=== PATIENT | female | born 1990 | race Caucasian/White ===

== ENCOUNTER → 2018-06-02 | Outpatient (CLI) | payer SELFPAY ==
--- NOTE | 2018-06-02 16:12 | RADIOLOGY REPORT (SQ) ---
EXAM DESCRIPTION: U/S [id number] TRNABD 1GES W/ODOP COMPLETED DATE/TIME: 06/02/2018 3:46 pm REASON FOR STUDY: ENCOUNTER FOR SUPRVSN OF NORMAL , FIRST TRIMESTER Z34.81 ENCOUNTER FOR S UPRVSN OF NORMAL , FIRST TRIM COMPARISON: None. TECHNIQUE: Transabdominal static and realtime grayscale images acquired of the pelvis. Additional se lected spectral and color Doppler images recorded. All images stored on PACs. [facility]. CLINICAL DATES: LMP 03/26/2018. 9 weeks 5 days. LIMITATIONS: None. FINDINGS: FETUS: Living intrauterine . ULTRASOUND EGA: 9 weeks 6 days ULTRASOUND ASHLEE: 12/30/2018 CRL: 2.95 cm FHR: 182 beats per minute. SUBCHORIONIC BLEED: Yes SIZE OF BLEED: Small UTERUS: No masses. No anomalies. CERVICAL LENGTH: 4 cm. Closed. RIGHT ADNEXA: Normal ovary with normal vascular flow. 4.2 x 3 x 2.8 cm. No adnexal free fluid. No adnexal masses. LEFT ADNEXA: Ovary not seen. No adnexal free fluid. No adnexal masses. FREE FLUID: None. OTHER: No other significant finding. IMPRESSION: LIVING INTRAUTERINE . EGA 9 weeks 6 days. Trimester of : First - 0 to 13 weeks. TECHNICAL DOCUMENTATION: JOB ID: [id number] [employer]- All Rights Reserved rev Reading location - IP/workstation name: [email or web address]
== END ==
LOC: RAD 14:46
PROVIDERS: ATTEND Nurse Practitioner
DX: Z34.81 Encounter for supervision of other normal pregnancy, first trimester (principal)
CPT/HCPCS: 76801

== ENCOUNTER 2019-01-02 07:43 | Inpatient (IN) | payer MEDICAID ==
[2019-01-02 08:40] LABS: APPEARANCE,URINE CLOUDY; BILIRUBIN,URINE NEGATIVE (NEGATIVE); COLOR,URINE YELLOW; GLUCOSE, URINE NEGATIVE (NEGATIVE); KETONES,URINE NEGATIVE (NEGATIVE); LEUKOCYTE ESTERASE,URINE MODERATE (NEGATIVE); NITRITE,URINE NEGATIVE (NEGATIVE); PROTEIN,URINE 100 mg/dL (NEGATIVE); URINE SPECIFIC GRAVITY 1.018; UROBILINOGEN,URINE NEGATIVE mg/dL (<2.0)
[2019-01-02] MEDS ORDERED: RINGERS SOLUTION,LACTATED 1,000 ML IV ONE (08:48)
[2019-01-02 08:56] LABS: URINE AMPHETAMINES SCREEN NEGATIVE; URINE BARBITURATES SCREEN NEGATIVE; URINE BENZODIAZEPINES SCREEN NEGATIVE; URINE COCAINE SCREEN NEGATIVE; URINE MARIJUANA (THC) SCREEN NEGATIVE; URINE METHADONE SCREEN NEGATIVE; URINE PHENCYCLIDINE SCREEN NEGATIVE
[2019-01-02] MEDS: RINGERS SOLUTION,LACTATED 1,000 ML IV PRN ×2 (09:12→13:29)
[2019-01-02 09:40] LABS: ABSOLUTE EOSINOPHILS # (AUTO) 0.1 10^3/uL (0.0-0.6); ABSOLUTE LYMPHOCYTES (AUTO) 1.5 10^3/uL (0.5-4.7); ABSOLUTE MONOCYTES (AUTO) 0.5 10^3/uL (0.1-1.4); ABSOLUTE NEUT (AUTO) 6.8 10^3/uL (1.7-8.2); BASOPHILS % (AUTO) 0.2 % (0-2); EOSINOPHILS % (AUTO) 1.5 % (0-6); HEMATOCRIT 36.4 % (36.0-47.0); HEMOGLOBIN 12.3 g/dL (12.0-15.5); LYMPHOCYTES % (AUTO) 16.3 % (13-45); MEAN CORPUSCULAR HEMOGLOBIN 27.7 pg (27.0-33.4); MEAN CORPUSCULAR HGB CONC 33.8 g/dL (32.0-36.0); MEAN CORPUSCULAR VOLUME 82 fl (80-97); MONOCYTES % (AUTO) 5.9 % (3-13); PLATELET COUNT 220 10^3/uL (150-450); RED BLOOD COUNT 4.45 10^6/uL (3.72-5.28); RED CELL DISTRIBUTION WIDTH 15.7 % (11.5-14.0); SEGMENTED NEUTROPHILS % (AUTO) 76.1 % (42-78); TOTAL CELLS COUNTED % (AUTO) 100 %; WHITE BLOOD COUNT 8.9 10^3/uL (4.0-10.5)
[2019-01-02] MEDS: VANCOMYCIN HCL 1,000 MG in DEXTROSE 5%-WATER 250 ML IV SCH ×2 (10:15→15:45)
[2019-01-02] MEDS ORDERED: NALBUPHINE HCL INJ 10 MG/1 ML AMPULE INJ ONE (10:48)
[2019-01-02] MEDS ORDERED: NALBUPHINE HCL INJ 10 MG/1 ML AMPULE ONE (10:48)
[2019-01-02] MEDS ORDERED: OXYTOCIN/NORMAL SALINE 20 UNIT/1,000 ML RTUINJ IV PRN ×2 (13:04→14:41)
[2019-01-02] MEDS ORDERED: OXYTOCIN 10 UNIT/ML VIAL ONE (13:06)
[2019-01-02] MEDS ORDERED: MISOPROSTOL 0.2 MG TABLET ONE (13:06)
[2019-01-02] MEDS ORDERED: OXYTOCIN/NORMAL SALINE 20 UNIT/1,000 ML RTUINJ ONE (13:07)
[2019-01-02] MEDS ORDERED: LIDOCAINE 1% INJ-PF (10 MG/ML) 30 ML SDV ONE (13:07)
--- NOTE | 2019-01-02 14:36 | Admission Physical ---
Datetime Report Generated by CPN: 01/02/2019 14:36 CURRENT ADMISSION Chief Complaint: Suspected Ruptured Membranes Chief Complaint Other: Cervix 2cm on admission, advanced to 6cm after Pitocin augmentation with no cervical change after 4hrs Indication for Induction: Not Applicable Admit Impression : Postterm, Intrauterine Admit Plan: Admit to Unit; Initiate Labor Protocol ALLERGIES Medication Allergies: No Medication Allergies: Penicillins (01/02/2019) Latex: No Latex Allergies OBSTETRICAL HISTORY EDC: 12/31/2018 00:00 : 3 Para: 2 Gestational Diabetes: No Rh Sensitization: No Incompetent Cervix: No JADE: No Infertility: No ART Treatment: No Uterine Anomaly: No IUGR: No Hx Previous C/S: No Macrosomia: No Hx Loss/Stillborn: No PIH: No Hx : No Placenta Previa/Abruption: No Depression/PP Depression: No PTL/PROM: No Post Hemorrhage: No Current Procedures: Ultrasound; NST Obstetrical History Comments: G1-41.5 weeks induction, NVD G2-41.5 weeks induction, NVD G3-Current SEE RECORDS Alcohol: No Marijuana : No Cocaine: No Other Illicit Drugs: No Cigarettes: Never Smoker. [id number] MEDICAL HISTORY Diabetes: No Blood Transfusion: No Pulmonary Disease (Asthma, TB): No Breast Disease: No Hypertension: No Senior Coldfusion Developer Surgery: No Heart Disease: No Hosp/Surgery: Yes Autoimmune Disorder: No Anesthetic Complications: No Kidney Disease: No Abnormal Pap Smear: No Neuro/Epilepsy: No Psychiatric Disorders: No Other Medical Diseases: No Hepatitis/Liver Disease: No Significant Family History: No Varicosities/Phlebitis: No Trauma/Violence : No Thyroid Dysfunction: No Medical History Comments: Apendix , tonsilectomy, asthma INFECTIOUS HISTORY Gonorrhea: No Genital Herpes: No Chlamydia: No Tuberculosis: No Syphilis: No Hepatitis: No HIV/AIDS Exposure: No Rash or Viral Illness: No HPV: No PHYSICAL EXAM HEENT: Normal Heart: Normal Lungs: Normal Abdomen: Normal Genitourinary Exam: Normal Extremities: Normal Pelvic Type: Adequate Vital Signs: Reviewed; Within Normal Limits VAGINAL EXAM Dilatation: 8 Effacement: 90 Station: -1 Contraction Comments: q 2 min MEMBRANES Membranes: Ruptured Amniotic Fluid Color: Clear FETUS A EGA: 40.2 Monitoring: External US FHR- Baseline: 135 Accelerations: 15X15 Decelerations: None FHR Category: Category I Presentation: Vertex PLANS FOR LABOR AND DELIVERY Labor and Delivery: None Pain Management: Natural Feeding Preference: Breast Benefit of Breast Feed Discussed: Yes Circumcision: N/A INFORMED CONSENT Signature: with User ID: [email or web address]
[2019-01-02] MEDS ORDERED: DIPH/PERTUSS(ACELL)/TETANUS VAC/PF 0.5 ML SYR (>=10YO) IM PRN (14:41)
[2019-01-02] MEDS ORDERED: ZOLPIDEM TARTRATE 5 MG TABLET PO PRN (14:41)
[2019-01-02] MEDS ORDERED: DIBUCAINE 1% OINTMENT 56 GM TP PRN (14:41)
[2019-01-02] MEDS ORDERED: MEASLES,MUMPS&RUBELLA VACC/PF 0.5 ML VIAL SUBCUT PRN (14:41)
[2019-01-02] MEDS ORDERED: ACETAMINOPHEN 325 MG TABLET PO PRN (14:44)
[2019-01-02] MEDS ORDERED: ONDANSETRON HCL 8 MG TABLET PO PRN (14:44)
[2019-01-02] MEDS ORDERED: DIPHENHYDRAMINE HCL 25 MG CAPSULE PO PRN (14:45)
[2019-01-02] MEDS ORDERED: IBUPROFEN 800 MG TABLET ONE (15:48)
[2019-01-02] MEDS: IBUPROFEN 800 MG TABLET PO SCH ×2 (15:51→21:24)
[2019-01-02] MEDS: FERROUS SULFATE 325 MG TABLET PO SCH (17:42)
[2019-01-02] MEDS: DOCUSATE SODIUM 100 MG CAPSULE PO SCH (17:42)
[2019-01-02] MEDS: BENZOCAINE/MENTHOL AEROSOL SPRAY 56 ML TOP PRN (17:46)
[2019-01-02] MEDS: HYDROCODONE/ACETAMINOPHEN 5-325 MG TABLET PO PRN ×2 (17:46→22:55)
[2019-01-03] MEDS: IBUPROFEN 800 MG TABLET PO SCH ×3 (05:07→21:44)
[2019-01-03] MEDS: HYDROCODONE/ACETAMINOPHEN 5-325 MG TABLET PO PRN ×3 (05:07→18:30)
[2019-01-03 07:32] LABS: HEMATOCRIT 35.6 % (36.0-47.0); HEMOGLOBIN 11.8 g/dL (12.0-15.5); MEAN CORPUSCULAR HEMOGLOBIN 27.1 pg (27.0-33.4); MEAN CORPUSCULAR HGB CONC 33.1 g/dL (32.0-36.0); MEAN CORPUSCULAR VOLUME 82 fl (80-97); PLATELET COUNT 221 10^3/uL (150-450); RED BLOOD COUNT 4.35 10^6/uL (3.72-5.28)
[2019-01-03] MEDS: DOCUSATE SODIUM 100 MG CAPSULE PO SCH ×2 (10:25→18:29)
[2019-01-03] MEDS: SENNOSIDES/DOCUSATE 8.6-50 MG 1 EACH TABLET PO SCH (10:25)
[2019-01-03] MEDS: FAMOTIDINE 20 MG TABLET PO PRN (10:25)
[2019-01-03] MEDS: FERROUS SULFATE 325 MG TABLET PO SCH ×2 (10:25→18:29)
[2019-01-03] MEDS: PRENATAL VITAMIN W DHA CAPSULE PO SCH (10:25)
--- NOTE | 2019-01-03 10:50 | PDOC PROGRESS REPORT ---
Subjective-OB Progress Note for:: 01/03/19 - PP Day #1, doing well, no complaints. O+, Rubella Immune breast and bottlefeeding Physical Exam (OB) Vital Signs: Temp Pulse Resp BP Pulse Ox 98.8 F 82 18 150/79 H 95 01/02/19 20:08 01/02/19 20:08 01/02/19 20:08 01/02/19 20:08 01/02/19 20:08 Intake & Output 01/02/19 01/03/19 01/04/19 06:59 06:59 06:59 Intake Total 535 Balance 535 Weight 132.024 kg - General General Appearance: Appears well, Alert In distress: None - PIH/Pre-Eclampsia Clonus: Negative Headache: Absent Epigastric Pain: No Visual Changes: No - Lochia Lochia Amount: Scant < 10 ml Lochia Color: Rubra/Red - Abdomen Description: Soft Hernia Present: No Fundal Description: Firm, Midline Fundal Height: u/u - u/2 - Respiratory Respiratory Status: No respiratory distress - Abdominal Distension: No distension - Genitourinary Genitourinary Note: voiding - Extremities Upper extremity: Normal inspection Lower extremities: Edema - 1+ - Neurological Cognition: Normal Orientation: AAOx4 - Psychological Associated symptoms: Normal affect, Normal mood - Skin Skin Temperature: Warm Skin Moisture: Dry Objective-Diagnostic Laboratory: 01/03/19 07:20 01/03/19 07:20 WBC 10.0 RBC 4.35 Hgb 11.8 L Hct 35.6 L MCV 82 MCH 27.1 MCHC 33.1 RDW 16.0 H Plt Count 221 Assessment and Plan(PN) - Assessment and Plan (1) (normal spontaneous vaginal delivery) Is this a current diagnosis for this admission?: Yes (2) Normal course Is this a current diagnosis for this admission?: Yes - Time Spent with Patient Time with patient: Less than 15 minutes Medications reviewed and adjusted accordingly: Yes - Disposition Anticipated Discharge: Home Within: within 24 hours
[2019-01-04] MEDS: HYDROCODONE/ACETAMINOPHEN 5-325 MG TABLET PO PRN (04:11)
[2019-01-04] MEDS: BENZOCAINE/MENTHOL AEROSOL SPRAY 56 ML TOP PRN (04:11)
[2019-01-04] MEDS: IBUPROFEN 800 MG TABLET PO SCH ×2 (06:46→13:38)
[2019-01-04 08:10] VITALS: BP 149/89
--- NOTE | 2019-01-04 08:18 | Delivery Summary ---
Del Sum A-C Datetime Report Generated by CPN: 01/04/2019 08:17 DELIVERY PERSONNEL DELIVERY PERSONNEL: [id number] Delivery Doctor:: Ivis Cross MD Labor and Delivery Nurse:: Jo Soto RN Labor and Delivery Nurse:: Alyse Ro RN Associate Director:: SAMSON Carreon Live Ammunition Inspector/MENTAL HEALTH TECH: Sylwia Barriga, REGIONAL PLANNER MATERNAL INFORMATION Delivery Anesthesia: None Medications After Delivery: Pitocin Bolus-Please Comment; Pitocin Drip 20 Units/1000ml NSS Estimated Blood Loss (ml): 200 Maternal Complications: None Provider Comments: Pt 8cm and feeling strong urge to push with voluntary pushing. Remaining cervix on pt's right reduced carefully. Once complete, pt began pushing. Head delivered OA. Anterior shoulder delivered. Body cord reduced. Posterior shoulder delivered followed by rest of body. Baby placed on mom's abdomen. After _1min, cord clamped x 2 and cut by FOB. Placenta delivered intact with 3VC. No lacs. LABOR SUMMARY EDC: 12/31/2018 00:00 No. Babies in Womb: 1 Attempted: No Labor Anesthesia: None LABOR INFORMATION Reason for Induction: Not Applicable Onset of Labor: 01/02/2019 07:00 Complete Dilatation: 01/02/2019 14:10 Oxytocin: Augmentation Group B Beta Strep: Positive Antibiotics # of Doses: 1 Antibiotics Time of Last Dose: 1015 Name of Antibiotic Given: Vancomycin Steroids Given: None Reason Steroids Not Administered: Not Applicable MEMBRANES Membranes Rupture Method: Spontaneous Rupture of Membranes: 01/02/2019 07:00 Length of Rupture (hr): 7.25 Amniotic Fluid Color: Clear Amniotic Fluid Amount: Small STAGES OF LABOR Stage 1 hr: 7 Stage 1 min: 10 Stage 2 hr: 0 Stage 2 min: 5 Stage 3 hr: 0 Stage 3 min: 5 Total Time in Labor hr: 7 Total Time in Labor min: 20 VAGINAL DELIVERY Episiotomy: None Laceration #1: None Laceration Extension #1: N/A Laceration Repair: Not Applicable Sponge Count Correct: N/A Sharps Count Correct: Yes CSECTION DELIVERY Primary Indication: N/A Secondary Indication: N/A CSection Incidence: N/A Labor: N/A Elective: N/A CSection Incision: N/A BABY A INFORMATION Delivery Date/Time: 01/02/2019 14:15 Method of Delivery: Vaginal Born in Route : No : N/A Forceps: N/A Vacuum Extraction: N/A Shoulder Dystocia : No PRESENTATION/POSITION BABY A Presentation: Cephalic Cephalic Presentation: Vertex Vertex Position: Left Occipital Anterior Breech Presentation: N/A PLACENTA INFORMATION BABY A Placenta Delivery Time : 01/02/2019 14:20 Placenta Method of Delivery: Spontaneous Placenta Status: Delivered SCORES BABY A Heart Rate 1 min: >100 bpm Resp Effort 1 min: Good Cry Reflex Irritability 1 min: Cough or Sneeze or Pulls Away Muscle Tone 1 min: Some Flexion of Extremities Color 1 min: Body [place], Extremities Blue Resuscitation Effort 1 min: Tactile Stimulation SCORE 1 MIN: 8 Heart Rate 5 min: >100 bpm Resp Effort 5 min: Good Cry Reflex Irritability 5 min: Cough or Sneeze or Pulls Away Muscle Tone 5 min: Active Motion Color 5 min: Body [place], Extremities Blue Resuscitation Effort 5 min: Tactile Stimulation SCORE 5 MIN: 9 INFORMATION BABY A Gestational Age at Delivery: 40.2 Gestational Status: Full Term- 39- 40.6 Weeks Infant Outcome : Liveborn Infant Condition : Stable Sex: Female IDENTIFICATION BABY A Verification Date/Time: 01/02/2019 14:39 ID Band Number: [id number] Mother's Name Verified: Yes Infant RN Verifying : Elizabeth Mariee RN WEIGHT/LENGTH BABY A Infant Birthweight (gm): 3717 Infant Weight (lb): 8 Infant Weight (oz): 3 Length (in): 21.00 Length (cm): 53.34 CORD INFORMATION BABY A No. Cord Vessels: 3 Nuchal Cord : N/A Cord Blood Taken: Yes-For Eval (Mom's Blood Type - or O+) ASSESSMENT BABY A Infant Complications: None Physical Findings at Delivery: Molding of the Head Respirations: Appears Normal Skin to Skin: No Risk And Insurance Manager/ALS Called : No Infant Care By: D Anai RN Transferred To: Remains with Mother SIGNATURES Signature: with User ID: [email or web address] : I was personally available for consultation and serving as supervising physician for the MLP.
--- NOTE | 2019-01-04 08:55 | PDOC DISCHARGE SUMMARY ---
Final Diagnosis Discharge Date: 01/04/19 - Final Diagnosis (1) (normal spontaneous vaginal delivery) Is this a current diagnosis for this admission?: Yes (2) Normal course Is this a current diagnosis for this admission?: Yes Discharge Data - Discharge Medication Prescriptions: Ibuprofen [Motrin 800 mg Tablet] 800 mg PO Q8HP PRN #30 tablet PRN Reason: Abdominal Cramping Home Medications: No122/Iron/Folic Acid [ Multi Tablet] 1 each PO DAILY 01/02/19 Ibuprofen [Motrin 800 mg Tablet] 800 mg PO Q8HP PRN #30 tablet 01/04/19 Reason(s) for Admission: PROM Procedures: NST, Ultrasound Intrapartum Procedure(s): Spontaneous Vaginal Delivery - Diagnosis Test Laboratory: Temp Pulse Resp BP Pulse Ox 98.5 F 87 18 149/89 H 99 01/04/19 07:49 01/04/19 07:49 01/04/19 07:49 01/04/19 07:49 01/04/19 07:49 01/02/19 01/02/19 01/03/19 07:51 09:25 07:20 RBC 4.45 4.35 Hgb 12.3 11.8 L Hct 36.4 35.6 L Urine Opiates Screen NEGATIVE - Discharge information/Instructions Discharge Activity: Activity As Tolerated, Balance Activity w/Rest, No Lifting Over 10 Pounds, Pelvic Rest, No tub bath, Walk Frequently Discharge Diet: As Tolerated, Regular Disposition: HOME, SELF-CARE Follow up with: [facility] in: 3, Days - blood pressure check
[2019-01-04] MEDS: PRENATAL VITAMIN W DHA CAPSULE PO SCH (09:35)
[2019-01-04] MEDS: SENNOSIDES/DOCUSATE 8.6-50 MG 1 EACH TABLET PO SCH (09:35)
[2019-01-04] MEDS: FERROUS SULFATE 325 MG TABLET PO SCH (09:35)
[2019-01-04] MEDS: FAMOTIDINE 20 MG TABLET PO PRN (09:35)
[2019-01-04] MEDS: DOCUSATE SODIUM 100 MG CAPSULE PO SCH (09:35)
== END 2019-01-04 17:00 | disposition home or self-care (01) | DRG 807 ==
LOC: LC 07:43 → LR 08:57 → 2S 16:45
PROVIDERS: ADMIT Obstetrics & Gynecology; ATTEND Obstetrics & Gynecology
PROC: 10E0XZZ Delivery of Products of Conception, External Approach (ICD-10-PCS; principal; 2019-01-02)
DX: O48.0 Post-term pregnancy (principal); Z37.0 Single live birth; O99.824 Streptococcus B carrier state complicating childbirth; Z88.0 Allergy status to penicillin; Z3A.40 40 weeks gestation of pregnancy
CPT/HCPCS: 36415; 80307; 81005; 84112; 85025; 85027; 86592; 86850; 86900; 86901; J2300; J2590; J3370; J3490; J7060

== ENCOUNTER 2020-08-17 13:01 | Outpatient (CLI) | payer MEDICAID ==
--- NOTE | 2020-08-17 13:48 | Non Stress Test Report ---
Non Stress Test Datetime Report Generated by CPN: 08/17/2020 13:48 DEMOGRAPHIC EGA NST: 39.6 MONITORING Time on Monitor: 08/17/2020 13:20 Time off Monitor: 08/17/2020 13:40 NST Duration: 20 NST INTERVENTIONS NST Interventions: None Physician Notified NST: Dr. Coreas BABY A: [id number] BABY A Movement : Present Contraction Frequency : 4-6 FHR Baseline : 135 Accelerations : 15X15 Decelerations : None Variability : Moderate 6-25bpm NST Review: Meets Criteria for Reactive NST NST Review and Verified By : Jeanine Aj RN NST Results: Reactive NST REPORT Report Trigger: Send Report
--- OUTSIDE RECORDS SUMMARY | 2020-08-18 15:29 | XMS REPORT ---
:1990 [facility] Address [address] [address] Care Team Providers Name Role Phone Unavailable Unavailable Unavailable Allergies, Adverse Reactions, Alerts This patient has no known allergies or adverse reactions. Medications This patient has no known medications. Problems This patient has no known problems. Procedures This patient has no known procedures. Results This patient has no known results. Social History This patient has no known social history. Vital Signs This patient has no known vital signs.
== END 2020-08-17 13:55 | disposition home or self-care (01) ==
LOC: LC 13:01
PROVIDERS: ATTEND Obstetrics & Gynecology Gynecology
PROC: 4A1HXCZ Monitoring of Products of Conception, Cardiac Rate, External Approach (ICD-10-PCS; principal; 2020-08-17)
DX: O16.3 Unspecified maternal hypertension, third trimester (principal); Z3A.39 39 weeks gestation of pregnancy
CPT/HCPCS: 59025; 94760

== ENCOUNTER 2020-08-17 18:59 | Inpatient (IN) | payer MEDICAID ==
--- NOTE | 2020-08-17 19:42 | Admission Physical ---
Datetime Report Generated by CPN: 08/17/2020 19:42 CURRENT ADMISSION Chief Complaint: Other Indication for Induction: Gestational HTN Admit Impression : Term, Intrauterine Admit Plan: Initiate Labor Protocol ALLERGIES Medication Allergies: Yes Medication Allergies: Penicillins (08/17/2020); amoxicillin (08/17/2020) Latex: No Latex Allergies Food Allergies: NKFA Environmental Allergies: NKOA OBSTETRICAL HISTORY EDC: 08/18/2020 00:00 : 4 Para: 3 Term: 3 : 0 SAB: 0 IAB: 0 Ectopic: 0 Livin Cesareans: 0 VBACs: 0 Multiple Births: 0 Gestational Diabetes: No Rh Sensitization: No Incompetent Cervix: No JADE: No Infertility: No ART Treatment: No Uterine Anomaly: No IUGR: No Hx Previous C/S: No Macrosomia: No Hx Loss/Stillborn: No PIH: No Hx : No Placenta Previa/Abruption: No Depression/PP Depression: No PTL/PROM: No Post Hemorrhage: No Current Procedures: Ultrasound; NST; BPP Obstetrical History Comments: G1- Aug 2016 41 weeks induced epidural female G2- February 2013 41 weeks induced epidural female G3- December 2018 40.2 weeks female SEE RECORDS Alcohol: No Marijuana : No Cocaine: No Other Illicit Drugs: No Cigarettes: Former Smoker. [id number] MEDICAL HISTORY Diabetes: No Blood Transfusion: No Pulmonary Disease (Asthma, TB): Yes Breast Disease: No Hypertension: No Delivery Man Surgery: No Heart Disease: No Hosp/Surgery: No Autoimmune Disorder: No Anesthetic Complications: No Kidney Disease: No Abnormal Pap Smear: No Neuro/Epilepsy: No Psychiatric Disorders: No Other Medical Diseases: No Hepatitis/Liver Disease: No Significant Family History: No Varicosities/Phlebitis: No Trauma/Violence : No Thyroid Dysfunction: Yes Medical History Comments: CHTN, asthma as a child, thyroid issues with current and last but no meds. appendectomy, T_A, stent placed in kidney to remove a stone INFECTIOUS HISTORY Gonorrhea: No Genital Herpes: No Chlamydia: No Tuberculosis: No Syphilis: No Hepatitis: No HIV/AIDS Exposure: No Rash or Viral Illness: No HPV: No PHYSICAL EXAM General: Normal HEENT: Normal Neurologic: Normal Thyroid: Normal Heart: Normal Lungs: Normal Breast: Deferred Back: Normal Abdomen: Normal Genitourinary Exam: Normal Extremities: Normal DTRs: Normal Pelvic Type: Adequate FETUS A EGA: 39.6 PLANS FOR LABOR AND DELIVERY Labor and Delivery: None Pain Management: Natural Feeding Preference: Breast Benefit of Breast Feed Discussed: Yes Circumcision: Yes INFORMED CONSENT Signature: with User ID: [email or web address]
[2020-08-17] MEDS ORDERED: RINGERS SOLUTION,LACTATED 300 ML IV ONE (20:29)
[2020-08-17] MEDS ORDERED: DINOPROSTONE 10 MG VAGINAL INSERT.SR PV ONE (20:29)
[2020-08-17] MEDS ORDERED: RINGERS SOLUTION,LACTATED 1,000 ML IV PRN (20:29)
[2020-08-17] MEDS ORDERED: ACETAMINOPHEN 325 MG TABLET PO PRN (20:29)
[2020-08-17] MEDS ORDERED: ZOLPIDEM TARTRATE 5 MG TABLET PO PRN (20:29)
[2020-08-17] MEDS ORDERED: MAG HYDROX/AL HYDROX/SIMETH SUSP 30 ML UDCUP PO PRN (20:29)
[2020-08-17 21:09] LABS: APPEARANCE,URINE SLIGHTLY-CLOUDY; BILIRUBIN,URINE NEGATIVE (NEGATIVE); COLOR,URINE YELLOW; GLUCOSE, URINE NEGATIVE (NEGATIVE); KETONES,URINE NEGATIVE (NEGATIVE); LEUKOCYTE ESTERASE,URINE TRACE (NEGATIVE); NITRITE,URINE NEGATIVE (NEGATIVE); PROTEIN,URINE 30 mg/dL (NEGATIVE); URINE SPECIFIC GRAVITY 1.026; UROBILINOGEN,URINE NEGATIVE mg/dL (<2.0)
[2020-08-17] MEDS ORDERED: DINOPROSTONE 10 MG VAGINAL INSERT.SR ONE (21:09)
[2020-08-17 21:27] LABS: URINE AMPHETAMINES SCREEN NEGATIVE; URINE BARBITURATES SCREEN NEGATIVE; URINE BENZODIAZEPINES SCREEN NEGATIVE; URINE COCAINE SCREEN NEGATIVE; URINE MARIJUANA (THC) SCREEN NEGATIVE; URINE METHADONE SCREEN NEGATIVE; URINE PHENCYCLIDINE SCREEN NEGATIVE
[2020-08-17 21:28] LABS: ABSOLUTE EOSINOPHILS # (AUTO) 0.1 10^3/uL (0.0-0.6); ABSOLUTE LYMPHOCYTES (AUTO) 1.7 10^3/uL (0.5-4.7); ABSOLUTE MONOCYTES (AUTO) 0.6 10^3/uL (0.1-1.4); ABSOLUTE NEUT (AUTO) 5.8 10^3/uL (1.7-8.2); BASOPHILS % (AUTO) 0.2 % (0-2); EOSINOPHILS % (AUTO) 1.3 % (0-6); HEMOGLOBIN 11.4 g/dL (12.0-15.5); LYMPHOCYTES % (AUTO) 21.2 % (13-45); MEAN CORPUSCULAR HGB CONC 32.6 g/dL (32.0-36.0); MEAN CORPUSCULAR VOLUME 83 fl (80-97); MONOCYTES % (AUTO) 6.8 % (3-13); PLATELET COUNT 212 10^3/uL (150-450); RED BLOOD COUNT 4.24 10^6/uL (3.72-5.28); RED CELL DISTRIBUTION WIDTH 15.9 % (11.5-14.0); SEGMENTED NEUTROPHILS % (AUTO) 70.5 % (42-78); TOTAL CELLS COUNTED % (AUTO) 100 %; WHITE BLOOD COUNT 8.2 10^3/uL (4.0-10.5)
[2020-08-18] MEDS ORDERED: CLINDAMYCIN 900 MG/D5W RTU 900 MG/50 ML RTUPB IV ONE ×2 (07:05→17:10)
--- NOTE | 2020-08-18 08:22 | L&D Progress Notes ---
PROGRESS NOTES Datetime Report Generated by CPN: 08/18/2020 08:22 PROGRESS NOTE Comment: Cat 1 strip, irregular uc's LAST VAGINAL EXAM-NURSING Nursing Exam Dilitation: 2.0 Nursing Exam Effacement: thick Nursing Exam Station: -3 Nursing Exam Contractions: patient breathing through contractions, no pain medication wanted at this time. Patient educated on epidural and IV pain medication if needed. Patient stated understanding. SIGNATURE SIGNATURE: [id number];[id number];[id number] Assignment: Shayla Lopez MD Signature: with User ID: [email or web address] : with User ID: [email or web address]
--- NOTE | 2020-08-18 09:52 | L&D Progress Notes ---
PROGRESS NOTES Datetime Report Generated by CPN: 08/18/2020 09:52 PROGRESS NOTE Comment: Cat 1 strip, getting more uncomfortable, irreg uc's, breathing with uc's LAST VAGINAL EXAM-NURSING Nursing Exam Dilitation: 4.0 Nursing Exam Effacement: 50 Nursing Exam Station: -2 Nursing Exam Contractions: patient breathing through contractions, no pain medication wanted at this time. Patient educated on epidural and IV pain medication if needed. Patient stated understanding. SIGNATURE SIGNATURE: [id number];[id number];[id number] Assignment: Shayla Lopez MD Signature: with User ID: [email or web address] : with User ID: [email or web address]
[2020-08-18] MEDS ORDERED: MISOPROSTOL 0.2 MG TABLET ONE (10:25)
[2020-08-18] MEDS ORDERED: LIDOCAINE 1% INJ-PF (10 MG/ML) 30 ML SDV ONE (10:25)
[2020-08-18] MEDS ORDERED: OXYTOCIN 10 UNIT/ML VIAL ONE (10:25)
[2020-08-18] MEDS ORDERED: OXYTOCIN/0.9 % SODIUM CHLORIDE 30 UNIT/500 ML RTUINJ ONE (10:25)
[2020-08-18] MEDS ORDERED: OXYTOCIN/0.9 % SODIUM CHLORIDE 30 UNIT/500 ML RTUINJ IV PRN ×2 (10:47→18:27)
[2020-08-18] MEDS ORDERED: NALBUPHINE HCL INJ 10 MG/1 ML AMPULE INJ ONE ×2 (11:29→11:50)
[2020-08-18] MEDS ORDERED: NALBUPHINE HCL INJ 10 MG/1 ML AMPULE ONE (11:50)
[2020-08-18] MEDS ORDERED: FENTANYL/BUPIVACAINE/NS/PF 300 MCG/150 ML RTUINJ EPI ONE (13:06)
[2020-08-18] MEDS ORDERED: EPHEDRINE SULFATE INJ 50 MG/1 ML AMPULE ONE (13:06)
[2020-08-18] MEDS ORDERED: ROPIVACAINE HCL 0.2% INJ/PF (2 MG/ML) 20 ML SDV ONE (13:07)
--- NOTE | 2020-08-18 13:49 | L&D Progress Notes ---
PROGRESS NOTES Datetime Report Generated by CPN: 08/18/2020 13:49 PROGRESS NOTE Comment: pt having stron urge to push, VE rim, easily reduced, started pushing and pt out of control, trying to get out of bed and screaming with each uc. FSE applied, nursery and Dr. Lopez in attendance, unable to talk with pt about what she needs to do to help deliver this baby, + Caput, VE by Dr. Lopez, rim with thick ant lip. Plan stop pushing, get epidural and try pushing again when complete. Epidural placed without difficulty, continues to complain of pain but better, Cat 1 strip, Pitocin off, will restart LAST VAGINAL EXAM-NURSING Nursing Exam Dilitation: 5.5 Nursing Exam Effacement: 70 Nursing Exam Station: -1 Nursing Exam Contractions: patient breathing through contractions, no pain medication wanted at this time. Patient educated on epidural and IV pain medication if needed. Patient stated understanding. SIGNATURE SIGNATURE: [id number];[id number];[id number] Assignment: Shayla Lopez MD Signature: with User ID: [email or web address] : with User ID: [email or web address]
--- NOTE | 2020-08-18 15:19 | L&D Progress Notes ---
PROGRESS NOTES Datetime Report Generated by CPN: 08/18/2020 15:19 PROGRESS NOTE Comment: comfortable with epidural but can feel pressure and pain with uc's, when nurse exits room pt will turn pitocin off per BF Moderate variability, irreg uc's, variables, + accels Anticipate if pt will cooperate LAST VAGINAL EXAM-NURSING Nursing Exam Dilitation: 5.5 Nursing Exam Effacement: 70 Nursing Exam Station: -1 Nursing Exam Contractions: patient breathing through contractions, no pain medication wanted at this time. Patient educated on epidural and IV pain medication if needed. Patient stated understanding. SIGNATURE SIGNATURE: [id number];[id number];[id number] Assignment: Shayla Lopez MD Signature: with User ID: [email or web address] : with User ID: [email or web address]
[2020-08-18] MEDS ORDERED: DIPHENHYDRAMINE HCL 50 MG/ML VIAL ONE (16:14)
--- NOTE | 2020-08-18 16:44 | L&D Progress Notes ---
PROGRESS NOTES Datetime Report Generated by CPN: 08/18/2020 16:44 PROGRESS NOTE Comment: Went in to check patient and start pushing, edematous ant lip and edema rt side of cervix, discussed with Dr. Lopez, Dr. Lopez placed [facility], discussed C/S for failure to progress and edematous ant lip, pt agrees, will wait and see if MVU's adequate and re-evaluate in 1-2 hour, Cat 1 strip, variables with uc's, moderate variability LAST VAGINAL EXAM-NURSING Nursing Exam Dilitation: 5.5 Nursing Exam Effacement: 70 Nursing Exam Station: -1 Nursing Exam Contractions: IUPC zeroed at this time. SIGNATURE SIGNATURE: [id number];[id number];[id number] Assignment: Shayla Lopez MD Signature: with User ID: [email or web address] : with User ID: [email or web address]
[2020-08-18] MEDS ORDERED: DIPHENHYDRAMINE HCL 25 MG CAPSULE PO PRN (18:27)
[2020-08-18] MEDS ORDERED: DIPH/PERTUSS(ACELL)/TETANUS VAC/PF 0.5 ML SYR (>=10YO) IM PRN (18:27)
[2020-08-18] MEDS ORDERED: MAGNESIUM HYDROXIDE SUSP 30 ML UDCUP PO PRN (18:27)
[2020-08-18] MEDS ORDERED: PROMETHAZINE HCL 25 MG SUPP.RECT PR PRN (18:27)
[2020-08-18] MEDS ORDERED: BENZOCAINE/MENTHOL AEROSOL SPRAY 56 ML TOP PRN (18:27)
[2020-08-18] MEDS ORDERED: MEASLES,MUMPS&RUBELLA VACC/PF 0.5 ML VIAL SUBCUT PRN (18:27)
[2020-08-18] MEDS ORDERED: DIBUCAINE 1% OINTMENT 28 GM TP PRN (18:27)
[2020-08-18] MEDS ORDERED: ZOLPIDEM TARTRATE 5 MG TABLET PO PRN (18:27)
[2020-08-18] MEDS ORDERED: GLYCERIN/WITCH HAZEL LEAF 1 EACH MED..WIPE TP PRN (18:27)
[2020-08-18] MEDS ORDERED: ACETAMINOPHEN 325 MG TABLET PO PRN (18:27)
[2020-08-18] MEDS ORDERED: PSEUDOEPHEDRINE HCL 30 MG TABLET PO PRN (18:27)
[2020-08-18] MEDS ORDERED: PROMETHAZINE HCL 25 MG TABLET PO PRN (18:27)
[2020-08-18] MEDS ORDERED: PROMETHAZINE HCL INJ 25 MG/1 ML VIAL IV PRN (18:27)
[2020-08-18] MEDS ORDERED: NA PHOS,M-B/NA PHOS,DI-BA (ADULT) 133 ML ENEMA PR PRN (18:27)
[2020-08-18] MEDS ORDERED: IBUPROFEN 800 MG TABLET ONE (19:57)
[2020-08-18] MEDS: IBUPROFEN 800 MG TABLET PO SCH (22:00)
[2020-08-18] MEDS: FAMOTIDINE 20 MG TABLET PO SCH (22:01)
[2020-08-19] MEDS: ACETAMINOPHEN WITH CODEINE #3 TABLET PO PRN ×3 (04:24→15:16)
[2020-08-19] MEDS: IBUPROFEN 800 MG TABLET PO SCH ×3 (06:05→21:29)
[2020-08-19 07:48] LABS: HEMATOCRIT 33.8 % (36.0-47.0); HEMOGLOBIN 10.8 g/dL (12.0-15.5); MEAN CORPUSCULAR HEMOGLOBIN 26.6 pg (27.0-33.4); MEAN CORPUSCULAR HGB CONC 31.9 g/dL (32.0-36.0); MEAN CORPUSCULAR VOLUME 84 fl (80-97); PLATELET COUNT 187 10^3/uL (150-450); RED BLOOD COUNT 4.05 10^6/uL (3.72-5.28); RED CELL DISTRIBUTION WIDTH 16.5 % (11.5-14.0)
[2020-08-19] MEDS: CLINDAMYCIN 900 MG/D5W RTU 900 MG/50 ML RTUPB IV SCH (08:41)
--- NOTE | 2020-08-19 09:08 | PDOC PROGRESS REPORT ---
Subjective-OB Progress Note for:: 08/19/20 Subjective: Doing well, no c/o, breast feeding, feeling alot better today, scant bleeding Physical Exam (OB) Vital Signs: Temp Pulse Resp BP Pulse Ox 98.0 F 79 16 118/70 98 08/19/20 08:49 08/19/20 07:52 08/19/20 07:52 08/19/20 07:52 08/19/20 07:52 Intake & Output 08/18/20 08/19/20 08/20/20 06:59 06:59 06:59 Intake Total 1200 Output Total 150 Balance 1050 Weight 133.8 kg - PIH/Pre-Eclampsia DTR's: 1 + Clonus: Negative Headache: Absent Epigastric Pain: No Visual Changes: No - Maternal Morbidity 59. Maternal Morbidity (serious complications experinced by the mother associated with labor and delivery: None of the above - Lochia Lochia Amount: Small 10-25 ml Lochia Color: Rubra/Red - Abdomen Description: Soft Hernia Present: No Fundal Description: Firm, Midline Fundal Height: 1/u - 2/u Objective-Diagnostic Laboratory: 08/19/20 07:34 08/19/20 07:34 WBC 12.0 H RBC 4.05 Hgb 10.8 L Hct 33.8 L MCV 84 MCH 26.6 L MCHC 31.9 L RDW 16.5 H Plt Count 187 Assessment and Plan(PN) - Assessment and Plan (1) Obstetric labial laceration, delivered, current hospitalization Is this a current diagnosis for this admission?: Yes (2) Vaginal delivery Is this a current diagnosis for this admission?: Yes (3) Chronic hypertension affecting Is this a current diagnosis for this admission?: Yes - Time Spent with Patient Time with patient: Less than 15 minutes Medications reviewed and adjusted accordingly: Yes - Disposition Anticipated Discharge Disposition: Home, Self Care Anticipated Discharge Timeframe: within 24 hours
[2020-08-19] MEDS: DOCUSATE SODIUM 100 MG CAPSULE PO SCH ×2 (10:32→17:42)
[2020-08-19] MEDS: FAMOTIDINE 20 MG TABLET PO SCH ×2 (10:32→21:30)
[2020-08-19] MEDS: PRENATAL VITAMIN W DHA CAPSULE PO SCH (10:32)
[2020-08-19] MEDS: SENNOSIDES/DOCUSATE 8.6-50 MG 1 EACH TABLET PO SCH (10:33)
[2020-08-19] MEDS: FERROUS SULFATE 325 MG TABLET PO SCH ×2 (10:33→17:42)
[2020-08-20] MEDS: ACETAMINOPHEN WITH CODEINE #3 TABLET PO PRN ×2 (03:45→12:26)
[2020-08-20] MEDS: IBUPROFEN 800 MG TABLET PO SCH (05:21)
[2020-08-20] MEDS: SENNOSIDES/DOCUSATE 8.6-50 MG 1 EACH TABLET PO SCH (09:49)
[2020-08-20] MEDS: FERROUS SULFATE 325 MG TABLET PO SCH (09:49)
[2020-08-20] MEDS: FAMOTIDINE 20 MG TABLET PO SCH (09:49)
[2020-08-20] MEDS: DOCUSATE SODIUM 100 MG CAPSULE PO SCH (09:49)
[2020-08-20] MEDS: PRENATAL VITAMIN W DHA CAPSULE PO SCH (09:49)
--- NOTE | 2020-08-20 10:13 | PDOC PROGRESS REPORT ---
Subjective-OB Progress Note for:: 08/20/20 Subjective: Feeling good today, ready to go home, no c/o, , hsb at BS Physical Exam (OB) Vital Signs: Temp Pulse Resp BP Pulse Ox 97.8 F 78 16 131/72 H 100 08/20/20 09:54 08/20/20 07:24 08/20/20 07:24 08/20/20 07:24 08/20/20 07:24 Intake & Output 08/19/20 08/20/20 08/21/20 06:59 06:59 06:59 Intake Total 1200 1500 Output Total 150 Balance 1050 1500 - PIH/Pre-Eclampsia DTR's: 2 + Clonus: Negative Headache: Absent Epigastric Pain: No Visual Changes: No - Maternal Morbidity 59. Maternal Morbidity (serious complications experinced by the mother associated with labor and delivery: None of the above - Lochia Lochia Amount: Scant < 10 ml Lochia Color: Rubra/Red - Abdomen Description: Soft, Round Hernia Present: No Fundal Description: Firm, Midline Fundal Height: u/u - u/2 Objective-Diagnostic Laboratory: 08/19/20 07:34 Assessment and Plan(PN) - Assessment and Plan (1) Obstetric labial laceration, delivered, current hospitalization Is this a current diagnosis for this admission?: Yes (2) Vaginal delivery Is this a current diagnosis for this admission?: Yes (3) Chronic hypertension affecting Is this a current diagnosis for this admission?: Yes (4) GBS (group B Streptococcus carrier), +RV culture, currently Is this a current diagnosis for this admission?: Yes - Time Spent with Patient Time with patient: Less than 15 minutes Medications reviewed and adjusted accordingly: Yes - Disposition Anticipated Discharge Disposition: Home, Self Care Anticipated Discharge Timeframe: within 24 hours
--- NOTE | 2020-08-20 10:18 | PDOC DISCHARGE SUMMARY ---
Impression - Admit/DC Date/PCP Admission Date/Primary Care Provider: 08/17/20 18:59 SAJI YOUNG MD Discharge Date: 08/20/20 - Discharge Diagnosis (1) Obstetric labial laceration, delivered, current hospitalization Is this a current diagnosis for this admission?: Yes (2) Vaginal delivery Is this a current diagnosis for this admission?: Yes (3) Chronic hypertension affecting Is this a current diagnosis for this admission?: Yes (4) GBS (group B Streptococcus carrier), +RV culture, currently Is this a current diagnosis for this admission?: Yes - Additional Information Resuscitation Status: Full Code Discharge Diet: As Tolerated, Regular Discharge Activity: Activity As Tolerated, Pelvic Rest Referrals: SAJI YOUNG MD [Primary Care Provider] - (1-2 weeks ck bp) Home Medications: No122/Iron/Folic Acid [ Multi Tablet] 1 each PO DAILY 01/02/19 HPI Gestational Age: 40 Reason(s) for Admission: Induction of Labor, PIH, Group B Strep Positive Procedures: NST, Ultrasound Intrapartum Procedure(s): Spontaneous Vaginal Delivery Complication(s): Laceration-Vaginal, Laceration-Labial Laceration-Degree: 1st Hospital Course Hospital Course: routine 59. Maternal Morbidity (serious complications experinced by the mother associated with labor and delivery: None of the above Results Laboratory Results: WBC 12.0 10^3/uL (4.0-10.5) H 08/19/20 07:34 RBC 4.05 10^6/uL (3.72-5.28) 08/19/20 07:34 Hgb 10.8 g/dL (12.0-15.5) L 08/19/20 07:34 Hct 33.8 % (36.0-47.0) L 08/19/20 07:34 MCV 84 fl (80-97) 08/19/20 07:34 MCH 26.6 pg (27.0-33.4) L 08/19/20 07:34 MCHC 31.9 g/dL (32.0-36.0) L 08/19/20 07:34 RDW 16.5 % (11.5-14.0) H 08/19/20 07:34 Plt Count 187 10^3/uL (150-450) 08/19/20 07:34 Lymph % (Auto) 21.2 % (13-45) 08/17/20 20:50 [place] % (Auto) 6.8 % (3-13) 08/17/20 20:50 Eos % (Auto) 1.3 % (0-6) 08/17/20 20:50 Baso % (Auto) 0.2 % (0-2) 08/17/20 20:50 Absolute Neuts (auto) 5.8 10^3/uL (1.7-8.2) 08/17/20 20:50 Absolute Lymphs (auto) 1.7 10^3/uL (0.5-4.7) 08/17/20 20:50 Absolute Monos (auto) 0.6 10^3/uL (0.1-1.4) 08/17/20 20:50 Absolute Eos (auto) 0.1 10^3/uL (0.0-0.6) 08/17/20 20:50 Absolute Basos (auto) 0.0 10^3/uL (0.0-0.2) 08/17/20 20:50 Seg Neutrophils % 70.5 % (42-78) 08/17/20 20:50 Urine Color YELLOW 08/17/20 20:50 Urine Appearance SLIGHTLY-CLOUDY 08/17/20 20:50 Urine pH 6.0 (5.0-9.0) 08/17/20 20:50 Ur Specific [place] 1.026 08/17/20 20:50 Urine Protein 30 mg/dL (NEGATIVE) H 08/17/20 20:50 Urine Glucose (UA) NEGATIVE mg/dL (NEGATIVE) 08/17/20 20:50 Urine Ketones NEGATIVE mg/dL (NEGATIVE) 08/17/20 20:50 Urine Blood NEGATIVE (NEGATIVE) 08/17/20 20:50 Urine Nitrite NEGATIVE (NEGATIVE) 08/17/20 20:50 Urine Bilirubin NEGATIVE (NEGATIVE) 08/17/20 20:50 Urine Urobilinogen NEGATIVE mg/dL (<2.0) 08/17/20 20:50 Ur Leukocyte Esterase TRACE (NEGATIVE) H 08/17/20 20:50 Urine Ascorbic Acid NEGATIVE (NEGATIVE) 08/17/20 20:50 Urine Opiates Screen NEGATIVE 08/17/20 20:50 Urine Methadone Screen NEGATIVE 08/17/20 20:50 Ur Barbiturates Screen NEGATIVE 08/17/20 20:50 Ur Phencyclidine Scrn NEGATIVE 08/17/20 20:50 Ur Amphetamines Screen NEGATIVE 08/17/20 20:50 U Benzodiazepines Scrn NEGATIVE 08/17/20 20:50 Urine Cocaine Screen NEGATIVE 08/17/20 20:50 U Marijuana (THC) Screen NEGATIVE 08/17/20 20:50 RPR NONREACTIVE (NONREACTIVE) 08/17/20 20:50 Blood Type O POSITIVE 08/17/20 20:50 Antibody Screen NEGATIVE 08/17/20 20:50 Plan Health Concerns: BP Plan of Treatment: discharge home. rev S&S to report Goals: no complications Time Spent: Less than 30 Minutes
[2020-08-20 11:40] VITALS: BP 136/81
--- NOTE | 2020-08-25 12:49 | Delivery Summary ---
Del Sum A-C Datetime Report Generated by CPN: 08/25/2020 12:49 DELIVERY PERSONNEL DELIVERY PERSONNEL: [id number] Delivery Doctor:: Shayla Lopez MD AMMONIA NITRATE OPERATOR:: Billy Dumont CRNA Labor and Delivery Nurse:: Dalila Aj RNsocial worker psychiatric Nurse:: Yanelis Still RN Mixer Tender/ICU REGISTERED NURSE: [facility], [employer] PRESS HELPER MATERNAL INFORMATION Delivery Anesthesia: Epidural Medications After Delivery: Pitocin 30 Units in 500ml NS/D5W Estimated Blood Loss (ml): 100 Delivery QBL: 100 Delivery QBL Comment: 100 Maternal Complications: None Provider Comments: VMI delivered in GLORIA presentation. No nuchal cord. Shoulders and body delivered without difficulty. Cord doubly clamped and cut. Infant to maternal abdomen for NRP. Placenta delivered intact spontaneously. FF at U. Right labial laceration repaired. Good hemostasis. Mother and baby stable upon provider leaving the room. LABOR SUMMARY EDC: 08/18/2020 00:00 No. Babies in Womb: 1 Attempted: No Labor Anesthesia: Epidural LABOR INFORMATION Reason for Induction: Chronic Primary/Essential HTN Onset of Labor: 08/18/2020 07:00 Complete Dilatation: 08/18/2020 17:41 Cervical Ripening Agents: Cervidil Cervical Ripening Agents: Cervidil Oxytocin: Induction Group B Beta Strep: Positive Antibiotics # of Doses: 2 Antibiotics Time of Last Dose: 08/18/2020 15:03 Name of Antibiotic Given: Cleocin Steroids Given: None Reason Steroids Not Administered: Not Applicable MEMBRANES Membranes Rupture Method: Artificial Rupture of Membranes: 08/18/2020 11:48 Length of Rupture (hr): 6.30 Amniotic Fluid Color: Clear Amniotic Fluid Amount: Scant Amniotic Fluid Odor: None STAGES OF LABOR Stage 1 hr: 10 Stage 1 min: 41 Stage 2 hr: 0 Stage 2 min: 25 Stage 3 hr: 0 Stage 3 min: 7 Total Time in Labor hr: 11 Total Time in Labor min: 13 VAGINAL DELIVERY Episiotomy: None Laceration #1: Vaginal Laceration Extension #1: N/A Other Laceration: R labial Laceration Repair: Yes Laceration Repair Note: repaired for hemostasis Sponge Count Correct: Yes Sharps Count Correct: Yes CSECTION DELIVERY Primary Indication: N/A Secondary Indication: N/A CSection Incidence: N/A Labor: N/A Elective: N/A CSection Incision: N/A BABY A INFORMATION Infant Delivery Date/Time: 08/18/2020 18:06 Method of Delivery: Vaginal Nurse Controlled Delivery: No Born in Route : No : N/A Forceps: N/A Vacuum Extraction: N/A Shoulder Dystocia : No PRESENTATION/POSITION BABY A Presentation: Cephalic Cephalic Presentation: Vertex Breech Presentation: N/A PLACENTA INFORMATION BABY A Placenta Delivery Time : 08/18/2020 18:13 Placenta Method of Delivery: Spontaneous Placenta Status: Delivered SCORES BABY A Heart Rate 1 min: >100 bpm Resp Effort 1 min: Good Cry Reflex Irritability 1 min: Cough or Sneeze or Pulls Away Muscle Tone 1 min: Active Motion Color 1 min: Body [place], Extremities Blue Resuscitation Effort 1 min: Tactile Stimulation SCORE 1 MIN: 9 Heart Rate 5 min: >100 bpm Resp Effort 5 min: Good Cry Reflex Irritability 5 min: Cough or Sneeze or Pulls Away Muscle Tone 5 min: Active Motion Color 5 min: Body [place], Extremities Blue Resuscitation Effort 5 min: N/A SCORE 5 MIN: 9 INFANT INFORMATION BABY A Gestational Age at Delivery: 40.0 Gestational Status: Full Term- 39- 40.6 Weeks Infant Outcome : Liveborn Condition : Stable Sex: Male IDENTIFICATION BABY A Infant Verification Date/Time: 08/18/2020 18:20 ID Band Number: [id number] Mother's Name Verified: Yes RN Verifying Infant: C. Horry RN ; B. Baidy, RN WEIGHT/LENGTH BABY A Infant Birthweight (gm): 3771 Weight (lb): 8 Weight (oz): 5 Length (in): 21.00 Length (cm): 53.34 CORD INFORMATION BABY A No. Cord Vessels: 3 Nuchal Cord : N/A Cord Blood Taken: Yes-For Eval (Mom's Blood Type - or O+) Suction: None ASSESSMENT BABY A Skin to Skin: Yes BABY B INFORMATION : N/A SIGNATURES Signature: with User ID: [email or web address]
== END 2020-08-20 13:03 | disposition home or self-care (01) | DRG 807 ==
LOC: LR 18:59 → 2S 08-18 20:41
PROVIDERS: ADMIT Obstetrics & Gynecology Gynecology; ATTEND Obstetrics & Gynecology Gynecology
PROC: 10E0XZZ Delivery of Products of Conception, External Approach (ICD-10-PCS; principal; 2020-08-18)
PROC: 0UQMXZZ Repair Vulva, External Approach (ICD-10-PCS; 2020-08-18)
PROC: 3E033VJ Introduction of Other Hormone into Peripheral Vein, Percutaneous Approach (ICD-10-PCS; 2020-08-18)
PROC: 10907ZC Drainage of Amniotic Fluid, Therapeutic from Products of Conception, Via Natural or Artificial Opening (ICD-10-PCS; 2020-08-18)
DX: O10.013 Pre-existing essential hypertension complicating pregnancy, third trimester (principal); Z37.0 Single live birth; O99.824 Streptococcus B carrier state complicating childbirth; O70.0 First degree perineal laceration during delivery; Z20.828 Contact with and (suspected) exposure to other viral communicable diseases; Z88.1 Allergy status to other antibiotic agents; Z88.0 Allergy status to penicillin; Z3A.40 40 weeks gestation of pregnancy; Z87.891 Personal history of nicotine dependence
CPT/HCPCS: 36415; 80307; 81005; 85025; 85027; 86592; 86850; 86900; 86901; 88307; J1200; J2300; J2590; J2795; J3010; J3490